=== PATIENT | female | born 1950 | race Caucasian/White ===

== ENCOUNTER 2017-01-05 14:17 | Inpatient (IN) | payer MEDICARE, OTHER ==
[2017-01-05] MEDS ORDERED: ALBUTEROL/IPRATROPIUM 1 VIAL SOL INH ONE (14:44)
[2017-01-05] MEDS ORDERED: ALBUTEROL/IPRATROPIUM 1 VIAL SOL ONE (14:55)
[2017-01-05 15:28] LABS: HEMATOCRIT 35 % (35-47); MEAN CORPUSCULAR HGB CONC 34.4 gm/dl (32.0-36.0); MEAN CORPUSCULAR VOLUME 88 fL (81-99)
[2017-01-05 15:45] LABS: ALBUMIN 3.2 gm/dl (3.4-5.0); ALT 16 IU/L (14-63); CALCIUM 8.9 mg/dl (8.5-10.1); GLOM FILT RATE 71 mL/min (>60); POTASSIUM 3.5 mMol/L (3.5-5.1); SODIUM 144 mMol/L (136-145)
[2017-01-05 15:54] LABS: BASOPHILS % (MANUAL) 0 % (0-3); EOSINOPHILS % (MANUAL) 3 % (0-9); LYMPHOCYTES % (MANUAL) 13 % (10-50)
[2017-01-05 15:55] LABS: NORMAL RBCS PRESENT
[2017-01-05] MEDS ORDERED: SOLUMEDROL 125 MG/2 ML 125 MG/2 ML PDS IV ONE (16:15)
[2017-01-05] MEDS: LEVOFLOXACIN 25 MG/ML 500 MG in SODIUM CHLORIDE 0.9% 100 ML 100 ML IV SCH (16:15)
[2017-01-05] MEDS ORDERED: ALBUTEROL/IPRATROPIUM 1 VIAL SOL INH PRN (16:48)
[2017-01-05] MEDS: SOLUMEDROL 125 MG/2 ML 125 MG/2 ML PDS IV SCH (17:00)
[2017-01-05] MEDS ORDERED: LEVOFLOXACIN 25 MG/ML 500 MG in SODIUM CHLORIDE 0.9% 100 ML 100 ML IV SCH (17:00)
[2017-01-05] MEDS ORDERED: LEVOFLOXACIN 500 MG (PREMIX) 500 MG/100 ML SOL IV ONE (17:05)
[2017-01-05] MEDS ORDERED: SOLUMEDROL 125 MG/2 ML 125 MG/2 ML PDS ONE (17:06)
[2017-01-05] MEDS: SODIUM CHLORIDE 0.9% FLUSH 10 ML SOL IV SCH (18:52)
[2017-01-05] MEDS ORDERED: DM/GUAIFENESIN SYRUP 10 ML SYRP PO PRN (20:04)
[2017-01-05] MEDS ORDERED: ALBUTEROL NEB SOL 2.5MG/3ML 1 VIAL SOL NEB PRN (20:04)
[2017-01-05] MEDS ORDERED: ACETAMINOPHEN 500 MG 500 MG TAB PO PRN (20:04)
[2017-01-05] MEDS: LAMOTRIGINE 100 MG TAB PO SCH (21:37)
[2017-01-05] MEDS: CARBAMAZEPINE 100 MG CTB PO SCH (21:37)
[2017-01-06] MEDS: SOLUMEDROL 125 MG/2 ML 125 MG/2 ML PDS IV SCH ×5 (01:50→21:09)
[2017-01-06] MEDS: SODIUM CHLORIDE 0.9% FLUSH 10 ML SOL IV SCH ×3 (02:51→16:40)
[2017-01-06] MEDS ORDERED: FUROSEMIDE 20 MG TAB PO SCH (09:00)
[2017-01-06] MEDS: CARBAMAZEPINE 100 MG CTB PO SCH ×2 (09:48→21:01)
[2017-01-06] MEDS: LAMOTRIGINE 100 MG TAB PO SCH ×2 (09:48→21:01)
[2017-01-06] MEDS: ALBUTEROL/IPRATROPIUM 1 VIAL SOL INH SCH ×4 (09:49→20:23)
[2017-01-06] MEDS: ENOXAPARIN 40 MG SOL SC SCH (09:49)
[2017-01-06 09:52] LABS: CALCIUM 8.9 mg/dl (8.5-10.1); POTASSIUM 3.9 mMol/L (3.5-5.1)
[2017-01-06] MEDS ORDERED: LEVOFLOXACIN 25 MG/ML SOL IV ONE (16:04)
[2017-01-06] MEDS ORDERED: SODIUM CHLORIDE 0.9% 100 ML 100 ML IV ONE (16:05)
[2017-01-06] MEDS: LEVOFLOXACIN 25 MG/ML 500 MG in SODIUM CHLORIDE 0.9% 100 ML 100 ML IV SCH (16:40)
[2017-01-06 23:54] VITALS: BP 152/80; RESP 20
[2017-01-07] MEDS: ALBUTEROL/IPRATROPIUM 1 VIAL SOL INH SCH ×3 (00:31→08:49)
[2017-01-07] MEDS: SOLUMEDROL 125 MG/2 ML 125 MG/2 ML PDS IV SCH ×2 (03:23→08:48)
[2017-01-07] MEDS: SODIUM CHLORIDE 0.9% FLUSH 10 ML SOL IV SCH ×2 (03:24→08:47)
[2017-01-07] MEDS: ENOXAPARIN 40 MG SOL SC SCH (08:46)
[2017-01-07] MEDS: LAMOTRIGINE 100 MG TAB PO SCH (08:46)
[2017-01-07] MEDS: CARBAMAZEPINE 100 MG CTB PO SCH (08:47)
[2017-01-07 09:03] VITALS: O2SAT 92
[2017-01-07 09:17] VITALS: TEMP 97.2
[2017-01-07 09:47] VITALS: PULSE 72
== END 2017-01-07 10:45 | DRG 192 ==
LOC: ED 14:17 → ACUTE CARE 16:40 → UNDOADMIN 16:40 → ACUTE CARE 17:30
PROVIDERS: ADMIT Family Medicine; ATTEND Family Medicine
DX: J44.1 Chronic obstructive pulmonary disease with (acute) exacerbation (principal)
CPT/HCPCS: 36415; 71010; 80048; 80053; 83735; 83880; 84484; 85007; 85027; 87040; 87804; 94760; 96365; 96374; 99221; 99231; 99284; J1650; J1956; J2930; J7603; J7620

== ENCOUNTER 2018-04-08 13:03 | Emergency (ER) | payer MEDICARE, OTHER ==
[2018-04-08 13:38] LABS: APPEARANCE,URINE Turbid; BILIRUBIN,URINE 2+ (NEGATIVE); COLOR,URINE Dark yellow; GLUCOSE, URINE (UA) NEGATIVE (NEGATIVE); KETONES,URINE 2+ (NEGATIVE); LEUKOCYTE ESTERASE ,URINE 1+ (NEGATIVE); NITRATE,URINE POSITIVE (NEGATIVE); OCCULT BLOOD,URINE 1+ (NEG-TRACE)
[2018-04-08 13:54] LABS: BACTERIA 4+ (< 1+); CRYSTALS NEGATIVE (0-3 AVE/HPF); EPITHELIAL CELLS 0-5 (SQUAMOUS); ICTOTEST,URINE NEGATIVE (NEGATIVE)
[2018-04-08 14:12] LABS: BASOPHILS % (AUTO) 1 % (0-3); EOSINOPHILS % (AUTO) 0 % (0-9); HEMATOCRIT 51 % (35-47); HEMOGLOBIN 15.7 gm/dl (12.0-15.5); LYMPHOCYTES % (AUTO) 19.2 % (10-50); MEAN CORPUSCULAR HEMOGLOBIN 32.2 pg (27.0-32.0); MEAN CORPUSCULAR HGB CONC 30.5 gm/dl (32.0-36.0); MONOCYTES % (AUTO) 12.1 % (0-12); NEUTROPHILS % (AUTO) 67.7 % (37-80)
[2018-04-08 14:13] LABS: MEAN CORPUSCULAR VOLUME 105 fL (81-99)
[2018-04-08 14:32] LABS: ALBUMIN 2.9 gm/dl (3.4-5.0); BILIRUBIN,TOTAL 0.6 mg/dl (0.2-1.0); CALCIUM 8.5 mg/dl (8.5-10.1); CREATININE 0.92 mg/dl (0.60-1.00); TOTAL PROTEIN 6.9 gm/dl (6.4-8.2)
[2018-04-08 14:34] LABS: POTASSIUM 2.8 mMol/L (3.5-5.1)
[2018-04-08] MEDS ORDERED: SODIUM CHLORIDE 0.9% 1000ML 1,000 ML IV SCH (14:45)
[2018-04-08] MEDS ORDERED: POTASSIUM CHLORIDE 10 MEQ TER PO ONE (15:08)
[2018-04-08 15:21] VITALS: TEMP 97.7; O2SAT 99
[2018-04-08] MEDS ORDERED: VANCOMYCIN HYDROCHLORIDE 500 MG PDS IV ONE (15:26)
[2018-04-08] MEDS ORDERED: POTASSIUM CHLORIDE 10 MEQ TER ONE (15:26)
[2018-04-08] MEDS ORDERED: CEFEPIME HYDROCHLORIDE 2 GM in SODIUM CHLORIDE 0.9% 100 ML 100 ML IV SCH (15:30)
[2018-04-08] MEDS ORDERED: VANCOMYCIN HCL 500 MG PDS 1,000 MG in SODIUM CHLORIDE 0.9% 250 ML 250 ML IV SCH (15:30)
[2018-04-08] MEDS ORDERED: CEFTRIAXONE 1 GM PDS ONE (15:42)
[2018-04-08] MEDS ORDERED: CEFTRIAXONE 1 GM PDS 2 GM in SODIUM CHLORIDE 0.9% 100 ML 100 ML IV ONE (15:43)
[2018-04-08 17:10] VITALS: BP 154/79; PULSE 82; RESP 24
== END 2018-04-08 16:40 | disposition short-term general hospital (02) | DRG 641 ==
LOC: ED 13:03
DX: E87.0 Hyperosmolality and hypernatremia (principal); E87.6 Hypokalemia; E86.9 Volume depletion, unspecified; R41.82 Altered mental status, unspecified; D49.6 Neoplasm of unspecified behavior of brain; R06.02 Shortness of breath
CPT/HCPCS: 36415; 70450; 80053; 81001; 85025; 87040; 87077; 87088; 87186; 96365; 96366; 99070; 99291; J0696; J3370; A9270-GY

== ENCOUNTER 2018-04-15 13:26 | Emergency (ER) | payer MEDICARE, OTHER ==
[2018-04-15 13:33] VITALS: RESP 20; TEMP 97.5
[2018-04-15 14:01] LABS: LACTIC ACID 1.2 mMol/L (0.0-2.0)
[2018-04-15 14:09] LABS: APPEARANCE,URINE Clear; BILIRUBIN,URINE NEGATIVE (NEGATIVE); COLOR,URINE Yellow; GLUCOSE, URINE (UA) NEGATIVE (NEGATIVE); KETONES,URINE TRACE (NEGATIVE); LEUKOCYTE ESTERASE ,URINE 1+ (NEGATIVE); NITRATE,URINE NEGATIVE (NEGATIVE); OCCULT BLOOD,URINE 2+ (NEG-TRACE); UROBILINOGEN,URINE 0.2 (0.2-1.0 EU)
[2018-04-15 14:21] LABS: ALBUMIN 2.3 gm/dl (3.4-5.0); BILIRUBIN,TOTAL 0.4 mg/dl (0.2-1.0); CARBON DIOXIDE 34.1 mEq/L (21-32); CREATININE 3.2 mg/dl (0.60-1.00); POTASSIUM 4.3 mMol/L (3.5-5.1); TOTAL PROTEIN 6.7 gm/dl (6.4-8.2)
[2018-04-15 14:30] LABS: BASOPHILS % (AUTO) 1 % (0-3); EOSINOPHILS % (AUTO) 4 % (0-9); HEMATOCRIT 43 % (35-47); HEMOGLOBIN 13.1 gm/dl (12.0-15.5); LYMPHOCYTES % (AUTO) 4.7 % (10-50); MEAN CORPUSCULAR HEMOGLOBIN 32.7 pg (27.0-32.0); MEAN CORPUSCULAR HGB CONC 30.7 gm/dl (32.0-36.0); MONOCYTES % (AUTO) 10.2 % (0-12); NEUTROPHILS % (AUTO) 79.5 % (37-80)
[2018-04-15 14:32] LABS: MEAN CORPUSCULAR VOLUME 106 fL (81-99)
[2018-04-15] MEDS ORDERED: SODIUM CHLORIDE 0.45% 1000 ML 1,000 ML IV ONE (14:35)
[2018-04-15] MEDS ORDERED: SODIUM CHLORIDE 0.9% FLUSH 10 ML SOL IV PRN (14:40)
[2018-04-15 14:42] LABS: BACTERIA 2+ (< 1+); CRYSTALS NEGATIVE (0-3 AVE/HPF); RBC,URINE 15-25 (0-3AV/HPF); WBC,URINE 30-40 (0-5AV/HPF)
[2018-04-15 15:38] VITALS: O2SAT 95
[2018-04-15 15:39] VITALS: BP 153/73; PULSE 77
== END 2018-04-15 15:52 | disposition short-term general hospital (02) | DRG 948 ==
LOC: ED 13:26
DX: R41.82 Altered mental status, unspecified (principal); N28.9 Disorder of kidney and ureter, unspecified; R40.2352 Coma scale, best motor response, localizes pain, at arrival to emergency department; R40.2132 Coma scale, eyes open, to sound, at arrival to emergency department; R40.2222 Coma scale, best verbal response, incomprehensible words, at arrival to emergency department; R29.710 NIHSS score 10
CPT/HCPCS: 36415; 70450; 71045; 80053; 81001; 85025; 87088; 96365; 99284; 99285